=== PATIENT | male | born 1940 | race Caucasian/White ===

== ENCOUNTER 2020-12-27 08:30 | Outpatient (RCR) | payer SELFPAY ==
[2020-09-16 12:25] VITALS: BP 102/62; PULSE 80; RESP 16; TEMP 36.3; O2SAT 98
== END 2020-12-27 16:49 | disposition home or self-care (01) ==
LOC: ANHCPREHAB 08:30
DX: I50.9 Heart failure, unspecified (principal)
CPT/HCPCS: 93798; 99199

== ENCOUNTER 2021-03-25 11:05 | Emergency (ER) | payer MEDICARE, SELFPAY ==
--- NOTE | 2021-03-25 11:10 | ED.ANIMALBIT ---
HPI - Animal Bite General Chief Complaint: Animal Bite Stated Complaint: Cat bite Time Seen by Provider: 03/25/21 11:10 Source: patient and RN notes reviewed History of Present Illness HPI narrative: Patient is an 81-year-old male who presents the urgent care with complaints of a cat bite to the right hand. Patient states it happened 2 days ago and has become more increased in swelling and redness. Patient is right-hand dominant. Patient states that the cat is his and he is up-to-date on his shots. Patient is up-to-date on his tetanus shot. Patient states that he took an extra penicillin medication that he had leftover from a dentist appointment. Patient has not taken anything [id number] for his pain. No other acute complaints. No acute distress noted. Patient aware of the plan of care. Some parts of this dictation were generated by voice recognition software and may contain typographical and/or grammatical inaccuracies. Related Data Home Medications Medication Instructions Recorded Confirmed acetaminophen [Tylenol] 650 mg PO BID 09/16/20 09/16/20 apixaban [Eliquis] 5 mg PO BID 09/16/20 03/25/21 atorvastatin 80 mg PO HS 09/16/20 03/25/21 hydrochlorothiazide 25 mg PO DAILY 09/16/20 03/25/21 mesalamine [Apriso] 1.5 g PO DAILY 09/16/20 03/25/21 metoprolol tartrate 50 mg PO Q12H 09/16/20 03/25/21 qnfvazfrikon-fqgq-zhzft acid 1 tablet PO DAILY 09/16/20 09/16/20 [Centrum] ramipril [Altace] 10 mg PO DAILY 09/16/20 03/25/21 Allergies Allergy/AdvReac Type Severity Reaction Status Date / Time Sulfa (Sulfonamide Allergy Unknown RASH/HIVES Verified 07/15/15 10:10 Antibiotics) Review of Systems Review of Systems: CONSTITUTIONAL: Denies fever, chills, or sweats. EYES: Denies visual changes, redness, or discharge. ENT: Denies rhinorrhea, congestion, sore throat, or otalgia. CARDIOVASCULAR: Denies chest pain, palpitations, or edema. RESPIRATORY: Denies cough or dyspnea. GASTROINTESTINAL: Denies abdominal pain, nausea, vomiting, or diarrhea. GENITOURINARY: Denies dysuria or hematuria. SKIN: Reports of a cat bite to the right hand MUSCULOSKELETAL: Reports of swelling and pain to the right hand NEUROLOGIC: Denies headache, numbness, or weakness. All other systems reviewed are negative, except as documented in HPI. PMFSH Social History Social History Smoking packs per day: 0.25 Smoking cigarettes per day: 5.0 Smoking status: Former smoker Tobacco type: cigarettes and cigars Second hand tobacco smoke exposure: Yes Smoking end date: 05/21/90 Additional smoking assessment comments: SMOKED FROM HIS MID 40'S TO AGE 51 Comments At the time of my signature, I reviewed and agree with the nursing past medical, surgical, social, and family history. There is no relevant family history pertinent to the patient complaint. Exam Narrative: GENERAL: This is a well-nourished, well-developed patient, in no apparent distress. HEAD: normocephalic, atraumatic. EYES: PERRL. Sclera clear/white. Vision is grossly intact. EARS: External ears normal NOSE: External nose normal with no obvious nasal discharge, nares without redness, no rhinorrhea. THROAT: Mucous membranes moist NECK: Neck supple, CARDIOVASCULAR: Paced RESPIRATORY: Clear to auscultation. Breath sounds equal bilaterally. No wheezes, rales, or rhonchi. SKIN: 7 x 7 area of erythema to the dorsal aspect of the right hand with a small scabbed puncture wound. NEURO: awake, alert, and oriented to person, place and time. There were no obvious focal neurologic abnormalities. EXTREMITIES: Mild to moderate right hand dorsal edema and erythema measuring 7 x 7 cm. Range of motion within normal limits with exacerbated pain on making a fist. Positive strong right radial pulse with capillary refill less than 2 seconds. Course Vital Signs Vital signs: Vital Signs Temperature 98.1 F 03/25/21 11:24 Pulse Rate 81 03/25/21 11:24 Respiratory Rate 18 03/25/21 11:24
[2021-03-25 11:24] VITALS: BP 118/59; PULSE 81; RESP 18; TEMP 36.7; O2SAT 99
== END 2021-03-25 11:39 | disposition home or self-care (01) ==
PROVIDERS: Emergency Provider Nurse Practitioner Family
DX: S61.431A Puncture wound without foreign body of right hand, initial encounter (principal); W55.01XA Bitten by cat, initial encounter; Z87.891 Personal history of nicotine dependence; I48.91 Unspecified atrial fibrillation; I11.0 Hypertensive heart disease with heart failure; I50.9 Heart failure, unspecified; I25.10 Atherosclerotic heart disease of native coronary artery without angina pectoris; Z95.5 Presence of coronary angioplasty implant and graft; Z95.810 Presence of automatic (implantable) cardiac defibrillator; Z85.46 Personal history of malignant neoplasm of prostate
CPT/HCPCS: 99213; G0463

== ENCOUNTER 2024-07-02 08:45 | Outpatient (RCR) | payer SELFPAY ==
[2024-03-21 11:17] VITALS: PULSE 70
== END 2024-07-07 07:28 | disposition home or self-care (01) ==
LOC: ANHCPREHAB 08:45
PROVIDERS: Visit Provider Internal Medicine Interventional Cardiology
DX: I50.89 Other heart failure (principal)
CPT/HCPCS: 99199